=== PATIENT | male | born 1995 | race Hispanic/Latino ===

== ENCOUNTER 2020-06-02 17:32 | Emergency (ER) | payer OTHER, SELFPAY ==
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
[2020-06-02 21:19] VITALS: TEMP 98.5
[2020-06-02 21:21] VITALS: BP 141/90; O2SAT 98
== END 2020-06-02 20:42 | disposition home or self-care (01) ==
LOC: ER 17:32
DX: R51.9 Headache, unspecified (principal); M54.2 Cervicalgia; V49.49XA Driver injured in collision with other motor vehicles in traffic accident, initial encounter
CPT/HCPCS: 70450; 72125; 99284